=== PATIENT | female | born 1945 | race Two or more races ===

== ENCOUNTER 2023-05-26 18:16 | Inpatient (IN) | payer OTHER ==
[~2023-05-26] VITALS: Ht 162.6 cm; Wt 54.4 kg
[2023-05-26] MEDS ORDERED: RISPERDAL2 MG (18:26)
[2023-05-26] MEDS ORDERED: LEVOTHYROXINE25 MCG (18:26)
[2023-05-26] MEDS ORDERED: GLYCOTROL CAPS1 EACH (18:26)
[2023-05-26 20:13] LABS: HEMATOCRIT 30.3 % (36.0-45.00); HEMOGLOBIN 10.1 g/dL (12.0-15.00); MEAN CELL VOLUME 98.9 fL (80.00-100.00); MEAN CORPUSCULAR HEMOGLOBIN 32.9 pg (27.00-32.0); MEAN CORPUSCULAR HGB CONC 33.2 g/dl (32.0-36.0); PLATELET COUNT 217 K/uL (150-450); RED BLOOD COUNT 3.06 M/uL (4.00-6.00); RED CELL DISTRIBUTION WIDTH 16.7 % (11.5-14.5)
[2023-05-26 20:28] LABS: INR 0.98; PARTIAL THROMBOPLASTIN TIME 27.9 SECONDS (22.0-34.0); PROTHROMBIN TIME 10.3 SECONDS (9.0-11.5)
[2023-05-26 20:33] LABS: ALBUMIN 2.9 gm/dL (3.4-5.0); BILIRUBIN TOTAL 0.33 mg/dL (0.3-1.2); CALCIUM 9.7 mg/dL (8.5-10.1); CREATININE SERUM 1.04 mg/dL (0.55-1.02); GFR 51.25; POTASSIUM 3.22 mEq/L (3.5-5.1); TOTAL PROTEIN 6.9 gm/dL (6.4-8.2)
[2023-05-26 20:45] LABS: URINE APPEARANCE Clear; URINE BILIRRUBIN Negative (NEGATIVE); URINE BLOOD Large; URINE COLOR Yellow; URINE GLUCOSE Negative (NEGATIVE); URINE LEUKOCYTE Large; URINE NITRATE Negative; URINE PROTEIN Negative (NEGATIVE)
[2023-05-26 20:52] LABS: URINE BACTERIA 318.7 uL (0.0-1933); URINE EPITHELIAL CELLS 3.2 uL (0.0-38.8); URINE RBC 311.4 uL (0.0-20.8); URINE WBC 115.4 uL (0.0-23.2)
[2023-05-27 23:23] LABS: HEMATOCRIT 29.7 % (36.0-45.00); HEMOGLOBIN 10.1 g/dL (12.0-15.00); MEAN CELL VOLUME 98.4 fL (80.00-100.00); MEAN CORPUSCULAR HEMOGLOBIN 33.4 pg (27.00-32.0); MEAN CORPUSCULAR HGB CONC 33.9 g/dl (32.0-36.0); PLATELET COUNT 171 K/uL (150-450); RED BLOOD COUNT 3.02 M/uL (4.00-6.00); RED CELL DISTRIBUTION WIDTH 16.5 % (11.5-14.5)
[2023-05-28 00:25] LABS: INR 1.01; PROTHROMBIN TIME 10.6 SECONDS (9.0-11.5)
[2023-05-28 08:05] LABS: HEMATOCRIT 28.6 % (36.0-45.00); HEMOGLOBIN 9.7 g/dL (12.0-15.00); MEAN CELL VOLUME 97.1 fL (80.00-100.00); MEAN CORPUSCULAR HGB CONC 33.9 g/dl (32.0-36.0); PLATELET COUNT 191 K/uL (150-450); RED BLOOD COUNT 2.95 M/uL (4.00-6.00); RED CELL DISTRIBUTION WIDTH 16.4 % (11.5-14.5)
[2023-05-28 08:20] LABS: ERYTHROCYTE SEDIMENTATION RATE 31 mm/hr
[2023-05-28 08:51] LABS: ALBUMIN 2.8 gm/dL (3.4-5.0); BILIRUBIN TOTAL 1.03 mg/dL (0.3-1.2); BILIRUBIN,CONJUGATED 0.25 mg/dL (0.0-0.2); BILIRUBIN,UNCONJUGATED 0.78 mg/dL (0.0-0.6); CALCIUM 9.1 mg/dL (8.5-10.1); CHOL HDL RATIO 2.8 (0-5.0); CREATININE SERUM 0.78 mg/dL (0.55-1.02); GFR 71.43; GLOBULINA 3.2 G/DL (2.4-3.5); POTASSIUM 3.48 mEq/L (3.5-5.1)
[2023-05-28 09:13] LABS: C-REACTIVE PROTEIN 2.36 MG/DL (0.00-0.29)
[2023-05-28 09:24] LABS: URINE APPEARANCE BLOODY; URINE COLOR RED
[2023-05-28 09:32] LABS: URINE BILIRRUBIN MODERATE (NEGATIVE); URINE GLUCOSE 250 MG/DL (NEGATIVE)
[2023-05-28 09:33] LABS: PH,URINE 6.5; PH,URINE 6.5 (5.0-8.0); URINE BLOOD LARGE; URINE PROTEIN 300 (NEGATIVE); URINE UROBILINOGEN 1 E.U./dl
[2023-05-28 09:34] LABS: URINE LEUKOCYTE POSITIVE; URINE NITRATE NEGATIVE
[2023-05-28 09:43] LABS: URINE RBC LOADED /HPF
[2023-05-28 09:44] LABS: URINE RBC > 20.8 uL (0.0-20.8)
[2023-05-29 06:55] LABS: HEMATOCRIT 25.2 % (36.0-45.00); MEAN CELL VOLUME 97.3 fL (80.00-100.00); MEAN CORPUSCULAR HGB CONC 34.7 g/dl (32.0-36.0); PLATELET COUNT 181 K/uL (150-450); RED BLOOD COUNT 2.59 M/uL (4.00-6.00); RED CELL DISTRIBUTION WIDTH 16.5 % (11.5-14.5)
[2023-05-29 07:03] LABS: HEMOGLOBIN 8.7 g/dL (12.0-15.00); MEAN CORPUSCULAR HEMOGLOBIN 33.5 pg (27.00-32.0)
[2023-05-29 07:18] LABS: ALBUMIN 2.8 gm/dL (3.4-5.0); BILIRUBIN TOTAL 0.78 mg/dL (0.3-1.2); CALCIUM 9.2 mg/dL (8.5-10.1); CREATININE SERUM 0.84 mg/dL (0.55-1.02); GFR 65.57; GLOBULINA 3.2 G/DL (2.4-3.5)
[2023-05-29 08:29] LABS: POTASSIUM 2.88 mEq/L (3.5-5.1)
[2023-05-31 07:04] LABS: HEMATOCRIT 23.7 % (36.0-45.00); MEAN CELL VOLUME 95.8 fL (80.00-100.00); MEAN CORPUSCULAR HGB CONC 34.7 g/dl (32.0-36.0); PLATELET COUNT 175 K/uL (150-450); RED BLOOD COUNT 2.48 M/uL (4.00-6.00); RED CELL DISTRIBUTION WIDTH 16.3 % (11.5-14.5)
[2023-05-31 07:12] LABS: ALBUMIN 2.4 gm/dL (3.4-5.0); BILIRUBIN TOTAL 0.75 mg/dL (0.3-1.2); CALCIUM 8.8 mg/dL (8.5-10.1); CREATININE SERUM 0.78 mg/dL (0.55-1.02); GFR 71.43; GLOBULINA 2.8 G/DL (2.4-3.5); TOTAL PROTEIN 5.2 gm/dL (6.4-8.2)
[2023-05-31 07:29] LABS: HEMOGLOBIN 8.2 g/dL (12.0-15.00)
[2023-05-31 08:55] LABS: POTASSIUM 2.82 mEq/L (3.5-5.1)
== END 2023-06-02 16:48 | DRG 351 ==
LOC: ER 18:16 → SURH 05-27 13:48
PROVIDERS: General Practice; Surgery; ADMIT Specialist; ATTEND Specialist
PROC: 0DJD0ZZ Inspection of Lower Intestinal Tract, Open Approach (ICD-10-PCS; 2023-05-27)
PROC: 0YQ60ZZ Repair Left Inguinal Region, Open Approach (ICD-10-PCS; principal; 2023-05-27 15:00)
PROC: BW21YZZ Computerized Tomography (CT Scan) of Abdomen and Pelvis using Other Contrast (ICD-10-PCS; 2023-05-29)
DX: K40.30 Unilateral inguinal hernia, with obstruction, without gangrene, not specified as recurrent (principal); E87.0 Hyperosmolality and hypernatremia; N17.9 Acute kidney failure, unspecified; N39.0 Urinary tract infection, site not specified; D64.9 Anemia, unspecified; G30.9 Alzheimer's disease, unspecified; R31.0 Gross hematuria; F02.80 Dementia in other diseases classified elsewhere, unspecified severity, without behavioral disturbance, psychotic disturbance, mood disturbance, and anxiety; E03.9 Hypothyroidism, unspecified; Z74.01 Bed confinement status; Z20.822 Contact with and (suspected) exposure to COVID-19; E86.0 Dehydration

== ENCOUNTER 2023-06-09 18:30 | Inpatient (IN) | payer OTHER ==
[~2023-06-09] VITALS: Ht 170.2 cm; Wt 54.4 kg
[~2023-06-09 18:30] MED LIST: GLYCOTROL CAPS1 EACH; LEVOTHYROXINE25 MCG; RISPERDAL2 MG
[2023-06-09 19:47] LABS: HEMATOCRIT 29.4 % (36.0-45.00); HEMOGLOBIN 10.1 g/dL (12.0-15.00); MEAN CELL VOLUME 95.9 fL (80.00-100.00); MEAN CORPUSCULAR HEMOGLOBIN 32.8 pg (27.00-32.0); MEAN CORPUSCULAR HGB CONC 34.2 g/dl (32.0-36.0); PLATELET COUNT 202 K/uL (150-450); RED BLOOD COUNT 3.07 M/uL (4.00-6.00)
[2023-06-09 20:10] LABS: INR 1.02; PARTIAL THROMBOPLASTIN TIME 34.7 SECONDS (22.0-34.0); PROTHROMBIN TIME 10.7 SECONDS (9.0-11.5)
[2023-06-09 20:12] LABS: CALCIUM 10.3 mg/dL (8.5-10.1); CREATININE SERUM 0.99 mg/dL (0.55-1.02); GFR 54.25
[2023-06-09 20:18] LABS: POTASSIUM 2.71 mEq/L (3.5-5.1)
[2023-06-09 20:46] LABS: PH,URINE 6.5 (5.0-8.0); URINE APPEARANCE Clear; URINE BILIRRUBIN Negative (NEGATIVE); URINE BLOOD Negative; URINE COLOR Yellow; URINE GLUCOSE Negative (NEGATIVE); URINE LEUKOCYTE Trace; URINE NITRATE Negative; URINE PROTEIN Negative (NEGATIVE)
[2023-06-09 20:49] LABS: URINE BACTERIA 83.1 uL (0.0-1933); URINE EPITHELIAL CELLS 3.7 uL (0.0-38.8); URINE RBC 3.3 uL (0.0-20.8); URINE WBC 25.7 uL (0.0-23.2)
[2023-06-09 22:47] LABS: ABG PH 7.447 (7.35-7.45); ABG PO2 70.3 mmHg (80-100); ABG pCO2 47.9 mmHg (35-45); BICARBONATE 32.3 mmol/l (23-25); Tco2 33.8 mmol/l
[2023-06-09 22:48] LABS: allen test SATISFACTORY; o2 21 %; puncture site RADIAL LEFT
[2023-06-10 06:48] LABS: ABG PH 7.434 (7.35-7.45); ABG PO2 93.1 mmHg (80-100); ABG pCO2 47.5 mmHg (35-45); BASE EXCESS 5.8 mmol/l; BICARBONATE 31.2 mmol/l (23-25); SaO2 97.6 %; Tco2 32.6 mmol/l; allen test SATISFACTORY; puncture site RADIAL LEFT
[2023-06-10 06:49] LABS: o2 21 %
[2023-06-10 08:16] LABS: URINE APPEARANCE Cloudy; URINE BILIRRUBIN Negative (NEGATIVE); URINE BLOOD Moderate; URINE COLOR Yellow; URINE GLUCOSE Negative (NEGATIVE); URINE LEUKOCYTE Small; URINE NITRATE Negative; URINE PROTEIN 30 (NEGATIVE)
[2023-06-10 08:20] LABS: URINE BACTERIA 400.6 uL (0.0-1933); URINE RBC 223.6 uL (0.0-20.8); URINE WBC 239.1 uL (0.0-23.2)
[2023-06-10 08:28] LABS: INR 1.05; PARTIAL THROMBOPLASTIN TIME 34.8 SECONDS (22.0-34.0)
[2023-06-10 08:44] LABS: PLATELET COUNT 171 K/uL (150-450); RED CELL DISTRIBUTION WIDTH 16.6 % (11.5-14.5)
[2023-06-10 08:53] LABS: MEAN CORPUSCULAR HEMOGLOBIN 32.5 pg (27.00-32.0)
[2023-06-10 08:54] LABS: HEMATOCRIT 25.9 % (36.0-45.00); HEMOGLOBIN 8.8 g/dL (12.0-15.00)
[2023-06-10 09:01] LABS: ERYTHROCYTE SEDIMENTATION RATE 29 mm/hr
[2023-06-10 09:13] LABS: ALBUMIN 2.3 gm/dL (3.4-5.0); BILIRUBIN TOTAL 0.58 mg/dL (0.3-1.2); BILIRUBIN,CONJUGATED 0.2 mg/dL (0.0-0.2); BILIRUBIN,UNCONJUGATED 0.38 mg/dL (0.0-0.6); CALCIUM 9.3 mg/dL (8.5-10.1); CHOL HDL RATIO 2.9 (0-5.0); CREATININE SERUM 0.94 mg/dL (0.55-1.02); GFR 57.59; GLOBULINA 2.8 G/DL (2.4-3.5); TOTAL PROTEIN 5.1 gm/dL (6.4-8.2)
[2023-06-10 09:45] LABS: C-REACTIVE PROTEIN 3.6 MG/DL (0.00-0.29)
[2023-06-10 09:47] LABS: POTASSIUM 2.94 mEq/L (3.5-5.1)
[2023-06-10 13:41] LABS: ABG PH 7.404 (7.35-7.45); ABG PO2 97.4 mmHg (80-100); ABG pCO2 44.4 mmHg (35-45); BICARBONATE 27.2 mmol/l (23-25); SaO2 97.6 %; Tco2 28.5 mmol/l
[2023-06-10 13:42] LABS: allen test SATISFACTORY; o2 32 %; puncture site RADIAL LEFT
[2023-06-11 10:13] LABS: ABG PH 7.301 (7.35-7.45); ABG PO2 78.5 mmHg (80-100); ABG pCO2 44.7 mmHg (35-45); SaO2 93.6 %
[2023-06-11 10:14] LABS: BASE EXCESS -4.9 mmol/l; BICARBONATE 21.5 mmol/l (23-25); Tco2 22.9 mmol/l; allen test SATISFACTORY; o2 100 %; puncture site RADIAL RIGHT
[2023-06-12 08:12] LABS: HEMATOCRIT 31.4 % (36.0-45.00); HEMOGLOBIN 10.3 g/dL (12.0-15.00); MEAN CELL VOLUME 97.9 fL (80.00-100.00); MEAN CORPUSCULAR HEMOGLOBIN 32.2 pg (27.00-32.0); MEAN CORPUSCULAR HGB CONC 32.9 g/dl (32.0-36.0); PLATELET COUNT 141 K/uL (150-450); RED BLOOD COUNT 3.21 M/uL (4.00-6.00)
[2023-06-12 08:21] LABS: CALCIUM 9.3 mg/dL (8.5-10.1); CREATININE SERUM 1.84 mg/dL (0.55-1.02); GFR 26.53; MAGNESIUM 2.3 mg/dL (1.8-2.4); POTASSIUM 3.89 mEq/L (3.5-5.1)
[2023-06-13 07:34] LABS: CALCIUM 8.6 mg/dL (8.5-10.1); CREATININE SERUM 1.86 mg/dL (0.55-1.02); GFR 26.2; POTASSIUM 3.23 mEq/L (3.5-5.1)
[2023-06-13 11:28] LABS: CHOL HDL RATIO 3.5 (0-5.0)
[2023-06-13 16:36] LABS: HEMATOCRIT 25.1 % (36.0-45.00); MEAN CORPUSCULAR HGB CONC 32.9 g/dl (32.0-36.0); RED BLOOD COUNT 2.56 M/uL (4.00-6.00); RED CELL DISTRIBUTION WIDTH 17.7 % (11.5-14.5)
[2023-06-13 16:37] LABS: MEAN CORPUSCULAR HEMOGLOBIN 32.4 pg (27.00-32.0)
[2023-06-13 16:43] LABS: PLATELET COUNT 55 K/uL (150-450)
[2023-06-13 16:54] LABS: HEMOGLOBIN 8.3 g/dL (12.0-15.00)
[2023-06-14 07:17] LABS: HEMATOCRIT 24.8 % (36.0-45.00); MEAN CELL VOLUME 96.8 fL (80.00-100.00); MEAN CORPUSCULAR HGB CONC 33.4 g/dl (32.0-36.0); RED BLOOD COUNT 2.56 M/uL (4.00-6.00); RED CELL DISTRIBUTION WIDTH 17.7 % (11.5-14.5)
[2023-06-14 07:24] LABS: CALCIUM 8.6 mg/dL (8.5-10.1); CREATININE SERUM 1.53 mg/dL (0.55-1.02); GFR 32.82; POTASSIUM 4.34 mEq/L (3.5-5.1)
[2023-06-14 07:52] LABS: HEMOGLOBIN 8.3 g/dL (12.0-15.00); MEAN CORPUSCULAR HEMOGLOBIN 32.4 pg (27.00-32.0)
[2023-06-14 07:54] LABS: PLATELET COUNT 41 K/uL (150-450)
== END 2023-06-15 01:43 | disposition expired | DRG 193 ==
LOC: ER 18:30 → MEDI 22:35 → ICU 22:35
PROVIDERS: General Practice; ADMIT Internal Medicine; ATTEND Internal Medicine
PROC: BW21ZZZ Computerized Tomography (CT Scan) of Abdomen and Pelvis (ICD-10-PCS; 2023-06-09)
PROC: 4A12X4Z Monitoring of Cardiac Electrical Activity, External Approach (ICD-10-PCS; principal; 2023-06-10)
PROC: 02HV33Z Insertion of Infusion Device into Superior Vena Cava, Percutaneous Approach (ICD-10-PCS; 2023-06-12)
DX: J18.9 Pneumonia, unspecified organism (principal); R65.21 Severe sepsis with septic shock; N39.0 Urinary tract infection, site not specified; E87.0 Hyperosmolality and hypernatremia; I46.9 Cardiac arrest, cause unspecified; E86.0 Dehydration; E87.6 Hypokalemia; D64.9 Anemia, unspecified; G30.9 Alzheimer's disease, unspecified; F02.80 Dementia in other diseases classified elsewhere, unspecified severity, without behavioral disturbance, psychotic disturbance, mood disturbance, and anxiety; E03.9 Hypothyroidism, unspecified; Z74.01 Bed confinement status; K52.89 Other specified noninfective gastroenteritis and colitis; Z20.822 Contact with and (suspected) exposure to COVID-19